=== PATIENT | male | born 1980 ===

== ENCOUNTER 2017-09-07 02:03 | Emergency (ER) | END 2017-09-07 03:30 | disposition left against medical advice (07) ==

== ENCOUNTER 2019-07-05 21:18 | Emergency (ER) | payer SELFPAY ==
[~2019-07-05] VITALS: Ht 177.8 cm; Wt 89.1 kg
[2019-07-05 21:20] VITALS: BP 108/58; PULSE 76; RESP 18; Ht 177.8 cm; Wt 89.1 kg
== END 2019-07-05 22:15 | disposition left against medical advice (07) ==
LOC: FTE 21:18
DX: Z53.21 Procedure and treatment not carried out due to patient leaving prior to being seen by health care provider (principal)